=== PATIENT | female | born 1975 | race Caucasian/White ===

== ENCOUNTER → 2021-04-23 | Outpatient (CLI) | payer OTHER ==
[~2021-04-23] MED LIST: IRON
[2021-04-23 12:30] LABS: HEMOGLOBIN 10.3 gm/dl (12.3-15.3); RED BLOOD COUNT 4.7 M/UL (4.00-5.10); WHITE BLOOD COUNT 8.9 K/UL (4.5-11.0)
== END ==
LOC: OPSV2 11:30
PROVIDERS: Obstetrics & Gynecology
DX: Z01.812 Encounter for preprocedural laboratory examination (principal); N93.9 Abnormal uterine and vaginal bleeding, unspecified
CPT/HCPCS: 36415; 81001; 85025

== ENCOUNTER → 2021-04-30 | Day surgery (SDC) | payer OTHER ==
[~2021-04-30] MED LIST changes: +IBUPROFEN800 MG PO; +PERCOCET 5/325 T1 EA PO
== END | disposition home or self-care (01) ==
LOC: OR 08:00
DX: N84.0 Polyp of corpus uteri (principal); Z80.49 Family history of malignant neoplasm of other genital organs; Z20.822 Contact with and (suspected) exposure to COVID-19
CPT/HCPCS: 84703; 93005; J0690; J1100; J2001; J2250; J2405; J3010; J7120